=== PATIENT | female | born 1970 | race Caucasian/White ===

== ENCOUNTER 2022-07-07 23:26 | Emergency (ER) | payer MEDICAID ==
[~2022-07-07] VITALS: Ht 157.5 cm; Wt 70.0 kg
[2022-07-08 01:30] LABS: BASOPHILS % 0.2 % (0.0-2.0); EOSINOPHILS % 0.5 % (0.0-5.0); HEMATOCRIT. 36.2 % (36.0-48.0); HEMOGLOBIN. 11.9 g/dL (12.0-16.0); LYMPHOCYTES % 18.3 % (20.0-50.0); MEAN CORPUSCULAR HEMOGLOBIN 28.3 pg (28.0-32.0); MEAN PLATELET VOLUME 7.2 fl (7.4-10.4); MONOCYTES % 11.5 % (2.0-8.0); NEUTROPHILS % 69.5 % (40.0-76.0); PLATELET 380 x1000/uL (130-400); RED BLOOD CELL COUNT 4.21 mill/uL (4.2-5.4); RED CELL DISTRIBUTION WIDTH 14.8 % (11.6-14.6)
[2022-07-08 02:11] LABS: CHLORIDE 106 mEq/L (98-107)
[2022-07-08 03:50] LABS: CLARITY URINE CLOUDY (CLEAR); COLOR URINE YELLOW (YELLOW); KETONES URINE NEGATIVE (NEGATIVE); LEUKOCYTE ESTERASE URINE NEGATIVE (NEGATIVE); NITRITE URINE NEGATIVE (NEGATIVE); OCCULT BLOOD URINE 3+ (NEGATIVE); PROTEIN URINE NEGATIVE (NEGATIVE); SPECIFIC GRAVITY URINE 1.016 (1.005-1.030)
[2022-07-08 03:58] LABS: HCG SCREEN NEGATIVE
[2022-07-08] MEDS ORDERED: NAPR-681 MT (05:13)
[2022-07-08] MEDS ORDERED: AMOX1TAB16 MT (05:13)
[2022-07-08 05:30] VITALS: BP 126/76
[2022-07-08] MEDS ORDERED: IBUPROFEN 600MG TABLET PO ONE (05:30)
== END 2022-07-08 05:56 | disposition home or self-care (01) ==
LOC: ER 23:26
DX: K57.92 Diverticulitis of intestine, part unspecified, without perforation or abscess without bleeding (principal)
CPT/HCPCS: 36415; 74176; 80053; 81003; 83605; 84484; 84703; 85025; 93005; 99285